=== PATIENT | female | born 2000 | race Caucasian/White ===

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

== ENCOUNTER → 2020-12-29 12:34 | Outpatient (CLI) | payer OTHER ==
[2018-05-19 22:34] VITALS: BMI 23.8
[~2020-12-29 12:34] MED LIST changes: +NORCO 7.5/325 T1 TA1 PO
== END | disposition home or self-care (01) ==
LOC: D.CT 12:34
PROVIDERS: ATTEND Nurse Practitioner
DX: K43.9 Ventral hernia without obstruction or gangrene (principal)